=== PATIENT | male | born 1995 | race Asian ===

== ENCOUNTER 2020-02-03 03:06 | Emergency (ER) | payer MEDICAID ==
[~2020-02-03] VITALS: Ht 180.3 cm; Wt 81.6 kg
[2020-02-03 03:10] VITALS: BP 136/87
--- NOTE | 2020-02-03 03:10 | NUR ---
ED Nurse Note: Patient brought into ED from home by JESSICA RA 26 for c/o drug use. Patient states he used acid/LSD tonight. Patient's parents were concerned and called 911. Patient has no medical complaint at this time. Patient can speak in full sentences and ambulate with steady gait. He is breathing normal and unlabored. NAD noted. Will monitor for change in condition.
--- NOTE | 2020-02-03 03:15 | NUR ---
ED Nurse Note: MECHANICAL FACILITIES TECHNICIAN Inessa spoke with patient's mother due to language barrier, she speaks hungarian. Per Inessa, Patient's mother states that patient has HI/SI tendancies at home and has had psychiatric issues in the past. Patient currently denies wanting to harm himself or others.
--- NOTE | 2020-02-03 03:17 | Emergency Room Report ---
History of Present Illness General Chief Complaint: Overdose Source: Patient Present Illness HPI This a 24-year-old male with no past medical history but does have a history of substance abuse. He was brought in with chief complaint of overdose. Mom called 911 because he been using more more drugs. Was crying at home and she could not deal with it so she called 911. Patient said he used some acid today. Mom said he was using Xanax. Patient denies suicidal thoughts homicidal thought. No hallucination or delusion. Nothing made it better. Nothing made it worse. Denies any other complaint. Spoke with mom over the phone. Mom said that he has been expressing suicidal thoughts more more. He said that he wants to take a bunch of pills to kill himself. Allergies: Coded Allergies: No Known Allergies (Unverified , 02/03/20) COVID-19 Screening COVID-19 risk:Contact w/high r: No Has patient experienced jones: No COVID-19 Testing performed ANIMAL TECHNICIAN: No Patient History Past Medical History: see triage record, old chart reviewed Past Surgical History: none Family History: none Social History: drug use, lives with parent Immunizations: other Reviewed Nursing Documentation: PMH: Agreed; PSxH: Agreed Nursing Documentation-PMH Past Medical History: No Stated History Review of Systems ENT: Denies: sore throat Cardiovascular: Denies: chest pain, palpitations Gastrointestinal/Abdominal: Denies: nausea, vomiting, diarrhea Musculoskeletal: Denies: back problems Skin: Denies: rash Neurological: Denies: MELGAR, seizures All Other Systems: negative except mentioned in HPI Physical Exam Vital Signs Date Time Temp Pulse Resp B/P (MAP) Pulse Ox O2 Delivery O2 Flow Rate FiO2 02/03/20 02:53 98.4 134 16 136/87 (103) 98 Room Air Vitals with tachycardia Sp02 EP Interpretation: reviewed, normal General Appearance: alert/responsive, no apparent distress, non-toxic Head: normocephalic, atraumatic Eyes: PERRL, EOMI ENT: oropharynx normal Neck: supple/symm/no masses Respiratory: effort normal, no rhonchi, no wheezing Cardiovascular: no murmur, gallop, rub Gastrointestinal: non-tender, no mass, non-distended, no rebound/guarding, normal bowel sounds Musculoskeletal: gait & station normal Neurologic: oriented x3, sensory intact, motor strength/tone normal Skin: no rash, normal palpation Medical Decision Making Diagnostic Impression: Primary Impression: Substance abuse ER Course Presents with substance abuse. His mom said that he has expressed suicidal thoughts in the past. Patient adamantly deny it. He does admit to using drugs , mostly LSD and ecstasy. Alcohol is negative here. Because of mom's reported suicidal thoughts in the past, was given keep him here into the morning to get psychiatric evaluation. Around 5 aM, patient eloped from the ER. Police called to see if they can find the patient to bring him back here. Last Vital Signs Date Time Temp Pulse Resp B/P (MAP) Pulse Ox O2 Delivery O2 Flow Rate FiO2 02/03/20 02:53 98.4 134 16 136/87 (103) 98 Room Air Status: improved Disposition: ELOPED Condition: Stable Daniel Kelly MD Feb 03, 2020 03:17
--- NOTE | 2020-02-03 03:19 | NUR ---
Call back number: Elmo Vora -
[2020-02-03 03:34] LABS: APPEARANCE,URINE CLEAR; BILIRUBIN, URINE NEGATIVE (NEGATIVE); GLUCOSE, URINE (UA) NEGATIVE (NEGATIVE); HEMOGLOBIN 15.7 G/DL (14.2-18.0); KETONES,URINE NEGATIVE (NEGATIVE); LEUKOCYTE ESTERASE ,URINE NEGATIVE (NEGATIVE); MEAN CORPUSCULAR VOLUME 87 FL (80-99); NITRITE,URINE NEGATIVE (NEGATIVE); PH,URINE 6 (4.5-8.0); PLATELET COUNT 312 K/UL (150-450); PROTEIN,URINE 2+ (NEGATIVE); RED BLOOD COUNT 5.31 M/UL (4.70-6.10); RED CELL DISTRIBUTION WIDTH 12.2 % (11.6-14.8); UROBILINOGEN,URINE NORMAL MG/DL (0.0-1.0); WHITE BLOOD COUNT 17.5 K/UL (4.8-10.8)
[2020-02-03 03:39] LABS: COLOR,URINE YELLOW
[2020-02-03 03:44] LABS: ANION GAP 13 mmol/L (5-15); BLOOD UREA NITROGEN 17 mg/dL (7-18); CALCIUM 9.8 MG/DL (8.5-10.1); CARBON DIOXIDE 24 MMOL/L (21-32); CHLORIDE 102 MMOL/L (98-107); CREATININE 1.3 MG/DL (0.55-1.30); POTASSIUM 3.5 MMOL/L (3.5-5.1); SODIUM 139 MMOL/L (136-145)
[2020-02-03 03:49] LABS: ALANINE AMINOTRANSFERASE 40 U/L (12-78); ALBUMIN 4.4 G/DL (3.4-5.0); ALBUMIN/GLOBULIN RATIO 1.1 (1.0-2.7); ALKALINE PHOSPHATASE 91 U/L (46-116); ASPARTATE AMINO TRANSFERASE 37 U/L (15-37); BILIRUBIN,TOTAL 0.4 MG/DL (0.2-1.0)
[2020-02-03 04:35] VITALS: BP 136/87
--- NOTE | 2020-02-03 04:35 | NUR ---
ELOPEMENT: Patient eloped at this time. Patient was initially in ortho room and wanted to make a phone call to his mother and was stating that he wanted to leave. Patient left via ambulance entrance doors. Patient was not homicidal or suicidal. Patient still had IV in place. Security notifed of patient elopement, patient was not found in or near hospital. Police report made due to patient still having IV in place. Patient left with steady gait per charge nurse who viewed security camera footage. Patient was not in any acute distress, breathing was normal and unlabored.
--- NOTE | 2020-02-03 05:40 | NUR ---
ED Nurse Note: Patient called C enrobing machine operator and RN spoke with patient. Patient called stating "you guys are looking for me?". Patient informed that he cannot leave without speaking to staff. Patient stated he walked home safely and that he removed IV line. NARINDER Wylie spoke with patient's mother and mother stated that nothing was on patient's arm therefore confirming that patient did remove IV. Patient's mother states patient is safe at home.
== END 2020-02-03 04:35 | disposition left against medical advice (07) ==
LOC: EDBD 03:06 → EMR 03:43
DX: F19.10 Other psychoactive substance abuse, uncomplicated (principal)
CPT/HCPCS: 36415; 80053; 80307; 81003; 85025; 96360; G0480; G0481; Z7502; 99284